=== PATIENT | male | born 1985 | race Caucasian/White ===

== ENCOUNTER 2020-10-14 03:58 | Emergency (ER) | payer MEDICAID, SELFPAY ==
[~2020-10-14] VITALS: Ht 170.2 cm; Wt 75.7 kg
[2020-10-14] MEDS ORDERED: KETOROLAC 30MG/ML VIAL IV STA (04:29)
[2020-10-14] MEDS ORDERED: ACETAMINOPHEN 325MG TABLET PO ONE (04:30)
[2020-10-14] MEDS ORDERED: SODIUM CHLORIDE 0.9% 1,000 ML IV ONE (04:30)
[2020-10-14 04:55] LABS: CHLORIDE 108 mEq/L (98-107)
[2020-10-14 05:11] LABS: HEMOGLOBIN. 16.5 g/dL (14.0-18.0); MEAN CORPUSCULAR HEMOGLOBIN 32.7 pg (28.0-32.0); MEAN CORPUSCULAR VOLUME 91.4 fL (80.0-94.0); PLATELET 235 x1000/uL (130-400); RED BLOOD CELL COUNT 5.03 mill/uL (4.7-6.1); RED CELL DISTRIBUTION WIDTH 13.3 % (11.6-14.6)
[2020-10-14] MEDS ORDERED: IBUP-2028 MT (05:49)
[2020-10-14] MEDS ORDERED: TOPUD MT (05:49)
[2020-10-14 06:00] LABS: CLARITY URINE CLEAR (CLEAR); COLOR URINE YELLOW (YELLOW); KETONES URINE NEGATIVE (NEGATIVE); LEUKOCYTE ESTERASE URINE NEGATIVE (NEGATIVE); NITRITE URINE NEGATIVE (NEGATIVE); OCCULT BLOOD URINE TRACE (NEGATIVE); PH URINE 7.5 (4.5-8.0); PROTEIN URINE 3+ (NEGATIVE); SPECIFIC GRAVITY URINE 1.013 (1.005-1.030)
[2020-10-14 07:22] VITALS: BP 120/80
[2020-10-14 08:06] LABS: PLATELET ESTIMATE NORMAL
== END 2020-10-14 07:24 | disposition home or self-care (01) ==
LOC: ER 03:58
DX: U07.1 COVID-19 (principal); I49.9 Cardiac arrhythmia, unspecified
CPT/HCPCS: 36415; 71045; 80053; 81003; 85025; 93005; 96361; 96374; 99285; C9803; J1885; J7030; U0003; U0005; Z7610

== ENCOUNTER 2020-10-17 02:41 | Emergency (ER) | payer MEDICAID ==
[~2020-10-17] VITALS: Ht 172.7 cm; Wt 77.0 kg
[~2020-10-17 02:41] MED LIST: IBUP-2028 MT; TOPUD MT
[2020-10-17] MEDS ORDERED: SODIUM CHLORIDE 0.9% 1,000 ML IV ONE (04:00)
[2020-10-17] MEDS ORDERED: FAMOTIDINE 20MG/2ML VIAL IV ONE (04:00)
[2020-10-17] MEDS ORDERED: ONDANSETRON HCL 4MG/2ML INJ IV ONE (04:00)
[2020-10-17 04:28] LABS: BASOPHILS % 0.2 % (0.0-2.0); HEMATOCRIT. 57.1 % (42.0-52.0); HEMOGLOBIN. 20.1 g/dL (14.0-18.0); LYMPHOCYTES % 8.1 % (20.0-50.0); MEAN CORPUSCULAR HEMOGLOBIN 32.4 pg (28.0-32.0); MEAN CORPUSCULAR VOLUME 91.9 fL (80.0-94.0); MEAN PLATELET VOLUME 8.4 fl (7.4-10.4); MONOCYTES % 3.3 % (2.0-8.0); NEUTROPHILS % 88.4 % (40.0-76.0); PLATELET 197 x1000/uL (130-400); RED BLOOD CELL COUNT 6.21 mill/uL (4.7-6.1); RED CELL DISTRIBUTION WIDTH 13.1 % (11.6-14.6)
[2020-10-17 04:41] LABS: CHLORIDE 99 mEq/L (98-107)
[2020-10-17] MEDS ORDERED: ONDA4TAB5 MT (05:22)
[2020-10-17] MEDS ORDERED: ACET-2708 MT (05:22)
[2020-10-17 06:10] VITALS: BP 123/82
== END 2020-10-17 06:22 | disposition home or self-care (01) ==
LOC: ER 02:41
DX: U07.1 COVID-19 (principal); M79.18 Myalgia, other site; R06.02 Shortness of breath; R11.2 Nausea with vomiting, unspecified; R19.7 Diarrhea, unspecified
CPT/HCPCS: 36415; 71045; 80053; 85025; 96361; 96374; 96375; 99284; J2405; J3490; J7030